=== PATIENT | female | born 1955 | race Two or more races ===

== ENCOUNTER 2023-08-06 10:44 | Outpatient (CLI) | payer MEDICARE | END 2023-08-06 10:45 | disposition home or self-care (01) | LOC: BICMAMMO 10:44 | PROVIDERS: ATTEND Nurse Practitioner Family | DX: Z12.31 Encounter for screening mammogram for malignant neoplasm of breast (principal) | CPT/HCPCS: 77063; 77067 ==

== ENCOUNTER 2023-10-31 14:57 | Emergency (ER) | payer MEDICARE ==
[2023-10-31 15:31] LABS: Hematocrit 43.5 % (36.0-47.0); Hemoglobin 14.5 g/dL (12.0-16.0); Manual Diff?? YES; Mean Corpuscular HGB CONC 33.3 g/dL (32.0-36.0); Mean Corpuscular Hemoglobin 28.4 pg (27.0-31.0); Mean Corpuscular Volume 85.3 fl (78.0-98.0); Mean Platelet Volume 10.1 fL (7.4-10.4); Platelet Count 101 10x3/uL (130-400); RBC Distribution Width 12.9 % (11.5-14.5); White Blood Cell (WBC) Count 10.5 10x3/uL (4.8-10.8)
[2023-10-31 15:57] LABS: Delete Auto Diff?? YES
[2023-10-31 15:59] LABS: ALT (SGPT) 24 U/L (8-55); AST (SGOT) 16 U/L (5-34); Alkaline Phosphatase 79 U/L (40-110); Anion Gap 15 mmol/L (10-20); BUN (Urea Nitrogen) 12 mg/dL (9.8-20.1); Bilirubin, Total 0.8 mg/dL (0.2-1.2); Calc. Creatinine Clearance 0 mL/min (70-130); Calcium 9.3 mg/dL (7.8-10.44); Carbon Dioxide 23 mmol/L (23-31); Chloride 103 mmol/L (98-107); Estimated GFR 56; Globulin 3.4 g/dL (2.4-3.5); Glucose 149 mg/dL (80-115); Potassium 3.5 mmol/L (3.5-5.1); Protein, Total 7.4 g/dL (5.8-8.1); Sodium 137 mmol/L (136-145)
[2023-10-31 16:03] LABS: Troponin I Less than 0.010 ng/mL (< 0.028)
[2023-10-31 16:33] LABS: CellaVision Operator ID LAB.KB; Eosinophils 2 % (0-10); Giant Platelets 0.9 % (0-5); Large Platelets 0.9 % (0-5); Lymphocytes 27 % (21-51); Monocytes 26 % (0-10); Neutrophil 41 % (42-75); Platelet Adequacy Comment Platelets Decreased; Polychromasia SLIGHT = 2-3 cells HPF (0-2); Reactive Lymphocytes 2 % (0-10); Smudge Cells 12.9 %; Total Cell Count 116
[2023-10-31 16:38] LABS: INR-International Normal Ratio 1.2; PTT 31.9 sec (22.9-36.1); Prothrombin Time 15.3 sec (12.0-14.7)
== END 2023-10-31 16:31 | disposition home or self-care (01) ==
LOC: ERS 14:57
DX: G51.0 Bell's palsy (principal); I10 Essential (primary) hypertension; Z98.890 Other specified postprocedural states
CPT/HCPCS: 36416; 70450; 71045; 80053; 84484; 85025; 85610; 85730; 93005; 94760